=== PATIENT | female | born 1985 | race American Indian/Alaskan Native ===

== ENCOUNTER 2020-09-10 00:08 | Emergency (ER) | payer SELFPAY ==
[2020-09-10] MEDS ORDERED: ONDANSETRON 4 MG ODT TAB ONE ×2 (00:53→03:00)
[2020-09-10 01:08] VITALS: BP 98/60
[2020-09-10] MEDS ORDERED: DEXTROSE 50% IN WATER (25GM) 50 ML SYRINGE IV ONE ×2 (01:14→01:16)
[2020-09-10] MEDS ORDERED: MAGNESIUM SULFATE 0 GM/0 ML BAG IV ONE (01:21)
[2020-09-10] MEDS ORDERED: ONDANSETRON 4 MG ODT TAB PO ONE (03:01)
[2020-09-10] MEDS ORDERED: ONDANSETRON 4 MG/2 ML INJ IV ONE (03:27)
[2020-09-10] MEDS ORDERED: SODIUM CHLORIDE 0.9% 1000 ML 1,000 ML IV ONE (03:27)
--- NOTE | 2020-09-10 03:29 | Emergency Department Report ---
ED HPI - General Chief complaint: Nausea/Vomiting/Diarrhea Stated complaint: 7WKS PREG/NAUSEA Time Seen by Provider: 09/10/20 03:24 Source: patient Mode of arrival: Ambulatory Limitations: No Limitations - History of Present Illness Initial comments: Patient is a 35-year-old female that presents emergency room with complaints of nausea, vomiting, . Patient states she believes she is approximately 7 weeks . Patient states she had nausea vomiting for 2 days. Patient states she is not able to hold food or liquids down. Patient states she is a G3, . Patient denies abdominal pain. Patient denies plan of care. Aleida ent denies dysuria. Patient denies blood per vagina. Patient denies recent travel. Patient denies recent international travel. Patient denies exposure to the novel coronavirus. Patient denies sick contacts. Patient denies fever and chills. Patient denies cough. Patient denies diarrhea. Patient denies coming in contact with anybody with symptoms of the novel coronavirus. -: Sudden Consistency: constant Improves with: none, rest Worsens with: eating, movement Associated symptoms: nausea/vomiting Vaginal bleeding: none :: Yes Number of weeks : 7 Pre- care: none - Related Data : 3 Para: 0 Ab: 2 Previous Rx's Medication Instructions Recorded Last Taken Type Ondansetron [Zofran Odt] 4 mg PO Q6HR PRN #25 tab.rapdis 09/10/20 Unknown Rx Allergies Allergy/AdvReac Type Severity Reaction Status Date / Time No Known Allergies Allergy Verified 09/10/20 01:05 ED Review of Systems ROS: Stated complaint: 7WKS PREG/NAUSEA Other details as noted in HPI Constitutional: weakness. denies: chills, fever Eyes: denies: eye pain, eye discharge, vision change ENT: denies: ear pain, throat pain Respiratory: denies: cough, shortness of breath, wheezing Cardiovascular: denies: chest pain, palpitations Endocrine: no symptoms reported Gastrointestinal: nausea, vomiting. denies: abdominal pain, diarrhea Genitourinary: denies: urgency, dysuria, discharge Musculoskeletal: denies: back pain, joint swelling, arthralgia Skin: denies: rash, lesions Neurological: denies: headache, weakness, paresthesias Psychiatric: denies: anxiety, depression Hematological/Lymphatic: denies: easy bleeding, easy bruising ED Past Medical Hx - Past Medical History Previous Medical History?: No - Surgical History Past Surgical History?: No - Family History Family history: no significant - Social History Smoking Status: Never Smoker Substance Use Type: None - Medications Home Medications: Home Medications Medication Instructions Recorded Confirmed Last Taken Type Ondansetron [Zofran Odt] 4 mg PO Q6HR PRN #25 tab.rapdis 09/10/20 Unknown Rx ED Physical Exam - General Limitations: No Limitations General appearance: alert, in no apparent distress - Head Head exam: Present: atraumatic, normocephalic - Eye Eye exam: Present: normal appearance - ENT ENT exam: Present: mucous membranes moist - Neck Neck exam: Present: normal inspection - Respiratory Respiratory exam: Present: normal lung sounds bilaterally. Absent: respiratory distress - Cardiovascular Cardiovascular Exam: Present: regular rate, normal rhythm. Absent: systolic murmur, diastolic murmur, rubs, gallop - GI/Abdominal GI/Abdominal exam: Present: soft, normal bowel sounds - Extremities Exam Extremities exam: Present: normal inspection - Back Exam Back exam: Present: normal inspection - Neurological Exam Neurological exam: Present: alert, oriented X3 - Psychiatric Psychiatric exam: Present: normal affect, normal mood - Skin Skin exam: Present: warm, dry, intact, normal color. Absent: rash ED Course Vital Signs 09/10/20 01:07 Temperature 98 F Pulse Rate 74 Respiratory 18 Rate Blood Pressure 98/60 [Left] O2 Sat by Pulse 99 Oximetry - Reevaluation(s) Reevaluation #1: Patient states she is feeling better. Patient tolerated p.o. intake. I discussed all results and clinical findings with patient. I discussed plan of care with patient. Patient agrees with plan of care. Patient is stable for discharge. Patient will be discharged home. Patient given discharge instructions. Patient voiced understanding of discharge instructions. 09/10/20 06:04 ED Medical Decision Making - Lab Data Result diagrams: 09/10/20 03:37 09/10/20 03:37 - Radiology Data Radiology results: report reviewed US OB <= 14 weeks fetus, US transvaginal INDICATION / CLINICAL INFORMATION: and n/v. COMPARISON: None available. FINDINGS: Transabdominal and transvaginal imaging was performed. Intrauterine gestational sac is seen with yolk sac. No pole is identified. Gestational sac measures 10 mm (5 weeks, 5 days). Thin crescentic hypoechogenicity adjacent to the gestational sac measuring 2 cm may be small subchorionic hemorrhage. Left ovary is unremarkable. There is a complex hypoechoic focus in the right ovary with peripheral vascularity, this could be a corpus luteal cyst. No free fluid. Cervical/nabothian cysts are noted. IMPRESSION: 1. Intrauterine gestational sac measures 5 weeks, 5 days. Yolk sac is seen but no pole is identified. Heterogeneous right ovarian lesion with peripheral vascularity is nonspecific but could be an early corpus luteal cyst. Correlation with serial beta hCGs and short- term sonographic follow- up is recommended. - Medical Decision Making Patient is a 35-year-old female that presents emergency room with complaints of nausea and vomiting. Patient also complained of being 7 weeks . Patient's labs were done and were essentially unremarkable except for elevated hCG. Patient had an ultrasound done. Patient's ultrasound and shows 5-week IUP. Patient is stable for discharge. Patient discharged home. - Differential Diagnosis , morning sickness, nausea, vomiting Critical care attestation.: If time is entered above; I have spent that time in minutes in the direct care of this critically ill patient, excluding procedure time. ED Disposition Clinical Impression: Qualifiers: Weeks of gestation: less than 8 weeks Qualified Code(s): Z3A.01 - Less than 8 weeks gestation of Nausea & vomiting Qualifiers: Vomiting type: unspecified Vomiting Intractability: non-intractable Qualified Code(s): R11.2 - Nausea with vomiting, unspecified Disposition: DC-01 TO HOME OR SELFCARE Is pt being admited?: No Does the pt Need Aspirin: No Condition: Stable Instructions: Nausea and Vomiting, Adult, Signs and Symptoms of Labor, Eating Plan for Women Additional Instructions: Patient to follow-up with primary care in 2 to 3 days. Patient to follow-up with [facility] TECH[employer]IST in 2 to 3 days. Patient to start and continue a vitamin. Patient to rest. Patient to increase water. Patient to avoid strenuous exercise or heavy lifting until cleared by [facility] S[employer] TECHNOLOGIST. Patient to take Tylenol as needed for pain. Patient to take meds as directed. Patient to return to the ER if condition worsens, changes or new symptoms arise. Prescriptions: Ondansetron [Zofran Odt] 4 mg PO Q6HR PRN #25 tab.rapdis PRN Reason: Nausea And Vomiting Referrals: PRIMARY CARE,MD [Primary Care Provider] - 2-3 Days
[2020-09-10 03:59] LABS: Basophils # (Auto) 0.1 K/mm3 (0.0-0.1); Basophils % (Auto) 1.1 % (0.0-1.8); Eosinophils # (Auto) 0.1 K/mm3 (0.0-0.4); Eosinophils % (Auto) 0.6 % (0.0-4.3); Hematocrit 36.3 % (30.3-42.9); Hemoglobin 12.6 gm/dl (10.1-14.3); Lymphocytes # (Auto) 0.8 K/mm3 (1.2-5.4); Lymphocytes % (Auto) 6.9 % (13.4-35.0); Mean Corpuscular HGB Conc 35 % (30-34); Mean Corpuscular Volume 90 fl (79-97); Monocytes # (Auto) 0.2 K/mm3 (0.0-0.8); Monocytes % (Auto) 2.1 % (0.0-7.3); Platelet Count 241 K/mm3 (140-440); Red Blood Count 4.03 M/mm3 (3.65-5.03)
[2020-09-10 04:14] LABS: Alanine Aminotransferase 8 units/L (7-56); Albumin 4.7 g/dL (3.9-5); BUN/Creatinine Ratio 15; Blood Urea Nitrogen 9 mg/dL (7-17); Calcium 10.1 mg/dL (8.4-10.2); Hemolysis Index 3
--- NOTE | 2020-09-10 06:04 | Ultrasound Report ---
US OB <= 14 weeks fetus, US transvaginal INDICATION / CLINICAL INFORMATION: and n/v. COMPARISON: None available. FINDINGS: Transabdominal and transvaginal imaging was performed. Intrauterine gestational sac is seen with yolk sac. No pole is identified. Gestational sac dulce ures 10 mm (5 weeks, 5 days). Thin crescentic hypoechogenicity adjacent to the gestational sac measuring 2 cm may be small subchori onic hemorrhage. Left ovary is unremarkable. There is a complex hypoechoic focus in the right ovary with peripheral va scularity, this could be a corpus luteal cyst. No free fluid. Cervical/nabothian cysts are noted. IMPRESSION: 1. Intrauterine gestational sac measures 5 weeks, 5 days. Yolk sac is seen but no pole is ident ified. Heterogeneous right ovarian lesion with peripheral vascularity is nonspecific but could be an early corpus luteal cyst. Correlation with serial beta hCGs and short-term sonographic follow-up is r ecommended. Signer Name: Peter Blanc MD Signed: 09/10/2020 6:00 AM Workstation Name: [id number]
[2020-09-10 06:21] LABS: Bilirubin,Urine NEG (Negative); Blood,Urine NEG (Negative); Color,Urine Yellow (Yellow); Mucus,Urine 3+ /HPF; Urobilinogen,Urine < 2.0 mg/dL (<2.0)
== END 2020-09-10 06:20 | disposition home or self-care (01) ==
LOC: ED 00:08
DX: O21.8 Other vomiting complicating pregnancy (principal); Z3A.01 Less than 8 weeks gestation of pregnancy; Z79.899 Other long term (current) drug therapy
CPT/HCPCS: 36415; 76801; 76830; 80053; 81001; 84702; 85025; 87086; 96361; 96374; 99284; J2405; J7030; J3475; Q0162

== ENCOUNTER 2020-10-01 11:47 | Emergency (ER) | payer MEDICAID ==
--- NOTE | 2020-10-01 12:17 | Emergency Department Report ---
Blank Doc - Documentation Documentation: 35-year-old female 8 weeks with n/v. Denies any vaginal bleeding or pain. This initial assessment/diagnostic orders/clinical plan/treatment(s) is/are subject to change based on patient's health status, clinical progression and re- assessment by fellow clinical providers in the ED. Further treatment and workup at subsequent clinical providers discretion. Patient/guardians urged not to elope from the ED as their condition may be serious if not clinically assessed and managed. Initial orders include: 1- Patient sent to [facility] for further evaluation and treatment 2- labs
[2020-10-01 12:20] VITALS: BP 113/66
--- NOTE | 2020-10-01 13:43 | Emergency Department Report ---
ED Recheck HPI - General Chief Complaint: Nausea/Vomiting/Diarrhea Stated Complaint: 9 WEEKS /DEHYDRATED/CANT KEEP FOOD DOWN Time Seen by Provider: 10/01/20 12:16 Source: patient Mode of arrival: Ambulatory Limitations: No Limitations - History of Present Illness Initial Comments: Patient is a 36-year-old -[place] female who comes to the ER stating that she is with her last menstrual cycle being 08/01/2020 she states this is her second she had an when she was 19. She denies vaginal bleeding or discharge. She denies any dysuria or abnormal vaginal discharge. She denies fever or chills. She denies abdominal pain or back pain. She states that she is just having nausea and vomiting associated with pre gnancy and she has run out of her Zofran. She is also requesting an ultrasound to make sure that the fetus is okay. Patient states his nausea and vomiting is not new she has just out of her medications. She did not follow-up as instructed on her last visit as seen by Dr. Martinez. She states that she was not given any follow-up information. Patient has no fever, chills, hypotension or tachycardia. She is ambulatory to the emergency room and in no acute distress - Related Data Previous Rx's Medication Instructions Recorded Last Taken Type Ondansetron [Zofran Odt] 4 mg PO Q6HR PRN #25 tab.rapdis 10/01/20 Unknown Rx Allergies Allergy/AdvReac Type Severity Reaction Status Date / Time No Known Allergies Allergy Verified 10/01/20 12:16 ED Review of Systems ROS: Stated complaint: 9 WEEKS /DEHYDRATED/CANT KEEP FOOD DOWN Other details as noted in HPI Comment: All other systems reviewed and negative ED Past Medical Hx - Past Medical History Previous Medical History?: No - Surgical History Past Surgical History?: No - Family History Family history: no significant - Social History Smoking Status: Never Smoker Substance Use Type: None - Medications Home Medications: Home Medications Medication Instructions Recorded Confirmed Last Taken Type Ondansetron [Zofran Odt] 4 mg PO Q6HR PRN #25 tab.rapdis 10/01/20 Unknown Rx ED Physical Exam - General Limitations: No Limitations General appearance: alert, in no apparent distress - Head Head exam: Present: atraumatic, normocephalic - Eye Eye exam: Present: normal appearance - ENT ENT exam: Present: mucous membranes moist - Neck Neck exam: Present: normal inspection - Respiratory Respiratory exam: Present: normal lung sounds bilaterally. Absent: respiratory distress - Cardiovascular Cardiovascular Exam: Present: regular rate, normal rhythm. Absent: systolic murmur, diastolic murmur, rubs, gallop - GI/Abdominal GI/Abdominal exam: Present: soft, normal bowel sounds - Extremities Exam Extremities exam: Present: normal inspection - Back Exam Back exam: Present: normal inspection - Neurological Exam Neurological exam: Present: alert, oriented X3 - Psychiatric Psychiatric exam: Present: normal affect, normal mood - Skin Skin exam: Present: warm, dry, intact, normal color. Absent: rash ED Course Vital Signs 10/01/20 12:19 Temperature 98.3 F Pulse Rate 83 Respiratory 15 Rate Blood Pressure 113/66 O2 Sat by Pulse 97 Oximetry ED Recheck MDM - Core Measures Measure Exclusions: not indicated - Medical Decision Making Patient was educated about follow-up for her concerns. Given her Zofran for her persistent nausea and vomiting. She has not vomited in the emergency room and she has been here now several hours. Patient is requesting an ultrasound to check on her baby. I told her that is not regular with the emergency department and I have discharged her with detailed follow-up instructions reemphasized by nurse orthopaedic. Patient is being referred to Dr. Locke who is on-call for us in the emergency room today for her ongoing care. Vital Signs 10/01/20 12:19 Temperature 98.3 F Pulse Rate 83 Respiratory 15 Rate Blood Pressure 113/66 O2 Sat by Pulse 97 Oximetry Critical care attestation.: If time is entered above; I have spent that time in minutes in the direct care of this critically ill patient, excluding procedure time. ED Disposition Clinical Impression: , Nausea and vomiting during Disposition: DC-01 TO HOME OR SELFCARE Is pt being admited?: No Does the pt Need Aspirin: No Condition: Stable Prescriptions: Ondansetron [Zofran Odt] 4 mg PO Q6HR PRN #25 tab.rapdis PRN Reason: Nausea And Vomiting Referrals: VANI LOCKE MD [Staff Physician] - 3-5 Days Time of Disposition: 13:42
== END 2020-10-01 13:49 | disposition home or self-care (01) ==
LOC: ED 11:47
DX: O21.8 Other vomiting complicating pregnancy (principal); Z79.899 Other long term (current) drug therapy; Z3A.09 9 weeks gestation of pregnancy
CPT/HCPCS: 99282